=== PATIENT | female | born 1985 | race Caucasian/White ===

== ENCOUNTER 2018-11-19 13:59 | Emergency (ER) | payer BC, MEDICAID ==
--- NOTE | 2018-11-19 14:30 | ED Physician Documentation ---
PD HPI CHEST PAIN - Stated complaint Stated Complaint: HIGH BP/CHEST PX - Chief complaint Chief Complaint: Cardiac - History obtained from History obtained from: Patient - History of Present Illness Timing - onset: Last night (33-year-old woman with long-standing intermittent symptomatic tachycardia that resolves with a vagal maneuver. She was referred by her primary care physician for Holter monitor but she said she did not have time for that. That said chronic issue that she gets about once a week and does not bother her too much. Since last night she has had left-sided chest heaviness radiating to the left back with 5 days of a nonproductive cough. Pain is slightly worse with deep breathing and improves if she presses on the anterior left side of her chest with her hand. She has mild shortness of breath with it. No recent travel, no estrogen use. No calf pain or swelling. No possibility of , she had a remote hysterectomy.) Review of Systems Ten Systems: 10 systems reviewed and negative Constitutional: denies: Fever, Chills Nose: denies: Rhinorrhea / runny nose, Congestion Cardiac: reports: Chest pain / pressure, Palpitations. denies: Pedal edema, Calf pain Respiratory: reports: Dyspnea, Cough. denies: Hemoptysis, Wheezing PD PAST MEDICAL HISTORY - Past Medical History Cardiovascular: None Respiratory: None Endocrine/Autoimmune: None GI: GERD, Hemorrhoids : None HEENT: None Psych: Anxiety Musculoskeletal: None Derm: None - Past Surgical History General: Other /[employer]: Tubal ligation HEENT: Tonsil/Adenoidectomy - Present Medications Home Medications: Ambulatory Orders Medication Instructions Recorded Confirmed Sertraline HCl 09/27/13 09/27/13 Zolpidem Tartrate 09/27/13 09/27/13 - Allergies Allergies/Adverse Reactions: Allergies Allergy/AdvReac Type Severity Reaction Status Date / Time No Known Drug Allergies Allergy Verified 09/26/13 15:00 PD ED PE NORMAL - Vitals Vital signs reviewed: Yes - General General: Alert and oriented X 3, No acute distress - HEENT HEENT: PERRL, EOMI - Neck Neck: Supple, no meningeal sign, No bony TTP - Cardiac Cardiac: RRR, No murmur - Respiratory Respiratory: No respiratory distress, Clear bilaterally - Abdomen Abdomen: Non tender - Extremities Extremities: No edema, No calf tenderness / cord - Neuro Neuro: Alert and oriented X 3, Normal speech Results - Vitals Vitals: Vital Signs - 24 hr 11/19/18 11/19/18 14:05 14:32 Temperature 36.6 C Heart Rate 90 89 Respiratory 16 18 Rate Blood Pressure 139/98 H 130/90 H O2 Saturation 100 97 Oxygen O2 Source Room air - EKG (time done) 1408 Rate: Rate (enter#) (83) Rhythm: NSR [place]: Normal QRS: Low voltage Ischemia: Non specific changes (flat twaves). No: ST elevation c/w ischemia, ST elevation c/w repol Computer interpretation: Agree with computer - Labs Labs: Laboratory Tests 11/19/18 11/19/18 11/19/18 14:16 14:16 14:16 WBC 4.7 L RBC 4.96 Hgb 13.5 Hct 43.0 MCV 86.7 MCH 27.2 MCHC 31.4 L RDW 14.9 Plt Count 231 MPV 10.7 Neut # (Auto) 2.9 Lymph # (Auto) 1.2 L [place] # (Auto) 0.4 Eos # (Auto) 0.1 Baso # (Auto) 0.0 Absolute Nucleated RBC 0.00 Nucleated RBC % 0.0 D-Dimer < 200.0 L Sodium 138 Potassium 3.5 Chloride 106 Carbon Dioxide 21 Anion Gap 11.0 BUN 8 Creatinine 0.6 Estimated GFR (MDRD) 114 Glucose 97 Calcium 9.2 Total Bilirubin 0.3 AST 22 ALT 18 Alkaline Phosphatase 78 Troponin I Total Protein 7.8 Albumin 4.5 Globulin 3.3 Albumin/Globulin Ratio 1.4 Lipase 46 11/19/18 14:16 WBC RBC Hgb Hct MCV MCH MCHC RDW Plt Count MPV Neut # (Auto) Lymph # (Auto) [place] # (Auto) Eos # (Auto) Baso # (Auto) Absolute Nucleated RBC Nucleated RBC % D-Dimer Sodium Potassium Chloride Carbon Dioxide Anion Gap BUN Creatinine Estimated GFR (MDRD) Glucose Calcium Total Bilirubin AST ALT Alkaline Phosphatase Troponin I < 0.04 Total Protein Albumin Globulin Albumin/Globulin Ratio Lipase - Rads (name of study) 2v chest Radiology: EMP read contemporaneously (normal) Departure - Departure Disposition: 01 Home, Self Care Clinical Impression: Atypical chest pain Condition: Good Record reviewed to determine appropriate education?: Yes Health Concerns: chest pain Plan of Treatment: HEART score zero, D-Dimer neg, troponin undetectable. Call your doctor to arrange a follow-up appointment, make the next available appointment. In the interim, return anytime if worse or if new symptoms develop. Care Goals: Rule out serious etiology for chest pain Assessment: as above Instructions: ED Chest Pain Atypical Unkn Cause
[2018-11-19 14:37] LABS: BASOPHILS % (AUTO) 0.9 %; EOSINOPHILS # (AUTO) 0.1 10^3/uL (0.0-0.7); HGB - HEMOGLOBIN 13.5 g/dL (12.0-16.0); LYMPHOCYTES # (AUTO) 1.2 10^3/uL (1.5-3.5); LYMPHOCYTES % (AUTO) 25.6 %; MEAN CORPUSCULAR HEMOGLOBIN 27.2 pg (27.0-31.0); MEAN CORPUSCULAR HGB CONC 31.4 g/dL (32.0-36.0); MEAN CORPUSCULAR VOLUME 86.7 fL (81.0-99.0); MEAN PLATELET VOLUME 10.7 fL (7.9-10.8); MONOCYTES # (AUTO) 0.4 10^3/uL (0.0-1.0); MONOCYTES % (AUTO) 8.5 %; NEUTROPHILS # (AUTO) 2.9 10^3/uL (1.5-6.6); NEUTROPHILS % (AUTO) 61.6 %; PLT - PLATELET COUNT 231 10^3/uL (130-450); RED BLOOD COUNT 4.96 10^6/uL (4.20-5.40); RED CELL DISTRIBUTION WIDTH 14.9 % (12.0-15.0); WHITE BLOOD COUNT 4.7 x10^3/uL (4.8-10.8)
[2018-11-19 14:42] LABS: ALBUMIN 4.5 g/dL (3.2-5.5); ALBUMIN/GLOBULIN RATIO 1.4 (1.0-2.2); BILIRUBIN,TOTAL 0.3 mg/dL (0.2-1.0); CALCIUM 9.2 mg/dL (8.5-10.3); CREATININE 0.6 mg/dL (0.4-1.0); TOTAL PROTEIN 7.8 g/dL (6.7-8.2)
--- NOTE | 2018-11-19 15:26 | XRAY Report ---
Reason: chest pain Procedure Date: 11/19/2018 Accession Number: [id number] / [id number] Procedure: XR - Chest 2 View X-Ray CPT Code: 40833 FULL RESULT: EXAM: CHEST RADIOGRAPHY, 2 VIEWS EXAM DATE: 11/19/2018 02:57 PM. CLINICAL HISTORY: Chest pain, intermittent, over the past 2 days, in a 33-year-old female. COMPARISON: None. TECHNIQUE: Upright PA and lateral views. FINDINGS: Lungs/Pleura: No focal opacities evident. No pleural effusion. No pneumothorax. Normal volumes. Mediastinum: Heart size normal, without adenopathy or pulmonary vascular congestion. Other: Trachea is midline. Osseous structures are unremarkable. IMPRESSION: Normal chest for age and body size. No pneumonia, CHF or other demonstrated cause for the patient's symptoms. [facility]
[2018-11-19 15:34] VITALS: BP 127/89
== END 2018-11-19 15:33 | disposition home or self-care (01) ==
LOC: ED 13:59
DX: R07.89 Other chest pain (principal)
CPT/HCPCS: 36415; 71046; 80053; 83690; 84484; 85025; 85379; 93005; 99283; 99284